=== PATIENT | female | born 1990 | race Native Hawaiian/Other Pacific Islander ===

== ENCOUNTER 2019-01-20 14:01 | Emergency (ER) | payer OTHER ==
[2019-01-20 14:11] VITALS: BP 124/77; PULSE 85; RESP 18; TEMP 98.3; O2SAT 100
[2019-01-20] MEDS ORDERED: Sodium Chloride 0.9% 1,000 ML IV STA (14:34)
[2019-01-20] MEDS ORDERED: Alum-Mag Hydrox-Simethicone Susp (30 mL) PO ONE (14:34)
[2019-01-20] MEDS ORDERED: Alum-Mag Hydrox-Simethicone Susp (30 mL) ONE (14:47)
[2019-01-20 15:04] LABS: BASO # 0.1 K/uL (0.0-0.2); BASO % 0.9 % (0.0-2.0); EOS % 0.3 % (0.0-4.0); HEMOGLOBIN 12.9 g/dL (12.0-16.0); LYMPH # 1.7 K/uL (1.0-4.3); MEAN CELL VOLUME 91.1 fl (81.0-99.0); MEAN CORPUSCULAR HEMOGLOBIN 30.4 pg (27.0-31.0); MEAN CORPUSCULAR HGB CONC 33.3 g/dL (33.0-37.0); MEAN PLATELET VOLUME 10.5 fl (7.2-11.7); MONO # 0.5 K/uL (0.0-0.8); MONO % 7.2 % (0.0-10.0); NEUT # 4.2 K/uL (1.8-7.0); NEUT % 65.6 % (50.0-75.0); NRBC % 0.1 % (0.0-0.0); RBC 4.25 Mil/uL (3.80-5.20); RED CELL DISTRIBUTION WIDTH 13.6 % (11.5-14.5); WHITE BLOOD COUNT 6.4 K/uL (4.8-10.8)
[2019-01-20 15:09] LABS: ALB/GLOB RATIO 1.6 (1.0-2.1); ALBUMIN 4.8 g/dL (3.5-5.0); ALT/SGPT 19 U/L (9-52); AST/SGOT 20 U/L (14-36); BLOOD UREA NITROGEN 10 mg/dl (7-17); CALCIUM 9.9 mg/dL (8.4-10.2); GFR NON-AFRICAN AMERICAN > 60; LIPASE 112 U/L (23-300)
[2019-01-20 15:10] LABS: SQUAMOUS EPITHIAL 1 /hpf (0-5); URINE BACTERIA OCC (<OCC); URINE BILIRUBIN NEGATIVE (NEGATIVE); URINE BLOOD NEGATIVE (NEGATIVE); URINE CLARITY SLIGHTY-CLOUDY (Clear); URINE COLOR YELLOW (YELLOW); URINE GLUCOSE (UA) NEG (NEGATIVE); URINE LEUKOCYTE ESTERASE NEG Leu/uL (Negative); URINE PROTEIN NEGATIVE (NEGATIVE); URINE UROBILINOGEN 0.2-1.0 mg/dL (0.2-1.0)
--- NOTE | 2019-01-20 15:18 | ED PDOC ---
HPI: Abdomen Time Seen by Provider: 01/20/19 14:21 Chief Complaint (Nursing): Abdominal Pain Chief Complaint (Provider): Abdominal Pain History Per: Patient History/Exam Limitations: no limitations Onset/Duration Of Symptoms: Days (x3) Current Symptoms Are (Timing): Still Present Location Of Pain/Discomfort: Epigastric Associated Symptoms: denies: Vomiting, Diarrhea Additional Complaint(s): 28 year old female presents to the ED stating, for the past 3 days, she has had progressively worsening epigastric abdominal pain associated with a bitter taste in her mouth. Patient reports abdominal pain radiates to her back. She further states, she was seen at [facility] yesterday and was given over the counter antacid medication without relief. Patient states she is going to [place] this evening and wants to make sure she is okay before she goes. Last bowel movement was today which was normal. Denies vomiting, diarrhea, previous abdominal surgeries, chest pain, shortness of breath, hematemesis, rectal bleeding, d ysuria, or hematuria. PMD: none provided Past Medical History Reviewed: Historical Data, Nursing Documentation, Vital Signs Vital Signs: Last Vital Signs Temp 98.3 F 01/20/19 14:10 Pulse 85 01/20/19 14:10 Resp 18 01/20/19 14:10 BP 124/77 01/20/19 14:10 Pulse Ox 100 01/20/19 14:10 - Medical History PMH: No Chronic Diseases - Surgical History Surgical History: No Surg Hx - Family History Family History: States: Unknown Family Hx - Home Medications Home Medications: Ambulatory Orders Medication Instructions Recorded Famotidine [Pepcid] 20 mg PO DAILY PRN #10 tab 01/20/19 Ondansetron ODT [Zofran ODT] 4 mg PO TID #10 odt 01/20/19 - Allergies Allergies/Adverse Reactions: Allergies Allergy/AdvReac Type Severity Reaction Status Date / Time No Known Allergies Allergy Verified 01/20/19 14:09 Review of Systems ROS Statement: Except As Marked, All Systems Reviewed And Found Negative ENT: Positive for: Other (Bitter taste in mouth) Cardiovascular: Negative for: Chest Pain Respiratory: Negative for: Shortness of Breath Gastrointestinal: Positive for: Abdominal Pain (epigastric pain radiating to the back). Negative for: Vomiting, Diarrhea, Hematemesis, Other (Rectal bleeding) Genitourinary Female: Negative for: Dysuria, Hematuria Physical Exam - Reviewed Nursing Documentation Reviewed: Yes Vital Signs Reviewed: Yes - Physical Exam Appears: Positive for: No Acute Distress Gastrointestinal/Abdominal: Positive for: Normal Exam, Soft, Other ((-) Villar's Sign). Negative for: Tenderness (to deep palpation) Back: Negative for: L CVA Tenderness, R CVA Tenderness - Laboratory Results Result Diagrams: 01/20/19 14:40 01/20/19 14:40 Lab Results: Total Bilirubin 2.5 mg/dl (0.2-1.3) H 01/20/19 14:40 AST 20 U/L (14-36) 01/20/19 14:40 ALT 19 U/L (9-52) 01/20/19 14:40 Alkaline Phosphatase 43 U/L (38-126) 01/20/19 14:40 Total Protein 7.7 G/DL (6.3-8.2) 01/20/19 14:40 Albumin 4.8 g/dL (3.5-5.0) 01/20/19 14:40 Globulin 3.0 gm/dL (2.2-3.9) 01/20/19 14:40 Albumin/Globulin Ratio 1.6 (1.0-2.1) 01/20/19 14:40 Lipase 112 U/L (23-300) 01/20/19 14:40 Urine Color Yellow (YELLOW) 01/20/19 14:44 Urine Clarity Slighty-cloudy (Clear) 01/20/19 14:44 Urine pH 6.0 (5.0-8.0) 01/20/19 14:44 Ur Specific Ola 1.014 (1.003-1.030) 01/20/19 14:44 Urine Protein Negative mg/dL (NEGATIVE) 01/20/19 14:44 Urine Glucose (UA) Neg mg/dL (NEGATIVE) 01/20/19 14:44 Urine Ketones Negative mg/dL (NEGATIVE) 01/20/19 14:44 Urine Blood Negative (NEGATIVE) 01/20/19 14:44 Urine Nitrate Negative (NEGATIVE) 01/20/19 14:44 Urine Bilirubin Negative (NEGATIVE) 01/20/19 14:44 Urine Urobilinogen 0.2-1.0 mg/dL (0.2-1.0) 01/20/19 14:44 Ur Leukocyte Esterase Neg Josette/uL (Negative) 01/20/19 14:44 Urine RBC (Auto) 3 /hpf (0-3) 01/20/19 14:44 Urine Microscopic WBC 1 /hpf (0-5) 01/20/19 14:44 Ur Squamous Epith Cells 1 /hpf (0-5) 01/20/19 14:44 Urine Bacteria Occ (<OCC) H 01/20/19 14:44 - ECG O2 Sat by Pulse Oximetry: 100 (RA) Pulse Ox Interpretation: Normal Medical Decision Making Medical Decision Making: Initial Impression: Abdominal Pain Initial Plan: --CMP --Lipase stat --ED urine --CBC --Lidocaine 2% 15mL PO --Aluminum hydroxide 30mL PO --Sodium chloride 1000mL IV --Pepcid 20mg IV --Zofran 4mg IV --Urinalysis --Abdomen US 1620 Abd US: negative as per radiology report. Pt. informed of all results. States she was informed in the past about having elevated bilirubin levels. Reports good relief of abdominal pain and nausea. Abd remains soft and non- tender to deep palpation. Advised to f/u with Dr. Perrin for further evaluation but is to return to ED immediately if symptoms worsen. Scribe Attestation: Documented by Arturo Nunez acting as a scribe for Everett WELCH Provider Scribe Attestation: All medical record entries made by the Scribe were at my direction and personally dictated by me. I have reviewed the chart and agree that the record accurately reflects my personal performance of the history, physical exam, medical decision making, and the department course for this patient. I have also personally directed, reviewed, and agree with the discharge instructions and disposition. Disposition - Clinical Impression Clinical Impression: Dyspepsia - Patient ED Disposition Is Patient to be Admitted: No - Disposition Referrals: Miko Kat MD, PhD [Staff Provider] - [facility] [Outside] Disposition: Routine/Home Disposition Time: 16:25 Condition: IMPROVED Additional Instructions: FOLLOW UP WITH DR. KAT FOR FURTHER EVALUATION RETURN TO ED IMMEDIATELY IF SYMPTOMS WORSEN KEANUAMANUEL GERMAIN Alexa DOLL, thank you for letting us take care of you today. Your provider was Rusty Pérez MD and you were treated for ABD PAIN, NAUSEA. The emergency medical care you received today was directed at your acute symptoms. If you were prescribed any medication, please fill it and take as directed. It may take several days for your symptoms to resolve. Return to the Emergency Department if your symptoms worsen, do not improve, or if you have any other problems. Please contact your doctor or call one of the physicians/clinics you have been referred to that are listed on the Patient Visit Information form that is included in your discharge packet. Bring any paperwork you were given at discharge with you along with any medications you are taking to your follow up visit. Our treatment cannot replace ongoing medical care by a primary care provider outside of the emergency department. Thank you for allowing the [facility] team to be part of your care today. If you had an X-Ray or CT scan: A Radiologist will review the ED reading if any change in treatment is needed we will contact you. If you had a blood, urine, or wound culture: It will take several days for the results, if any change in treatment is needed we will contact you. If you had an STI test: It will take 48 hours for the results. Please call after 1 week if you have not heard back. Prescriptions: Famotidine [Pepcid] 20 mg PO DAILY PRN #10 tab PRN Reason: Dyspepsia Ondansetron ODT [Zofran ODT] 4 mg PO TID #10 odt Instructions: Dyspepsia (DC), Stomach Ache and Stomach Upset Forms: [employer] (Yoruba) Print Language: CROATIAN
--- NOTE | 2019-01-20 16:21 | US ---
Date of service: 01/20/2019 HISTORY: Epigastric pain COMPARISON: None. TECHNIQUE: Grayscale imaging was performed. FINDINGS: LIVER: Measures 15.0 cm in length. Normal echogenicity of the liver parenchyma. No mass. No intrahepatic bile duct dilatation. GALLBLADDER: There are no gallstones, wall thickening or pericholecystic fluid. The sonographic Villar's sign is negative. COMMON BILE DUCT: Measures 3.0 mm. No stones. No dilatation. PANCREAS: Unremarkable as visualized. No mass. No ductal dilatation. RIGHT KIDNEY: Measures 11.1 cm in length. Normal echogenicity. No calculus, mass, or hydronephrosis. AORTA: No aneurysmal dilatation. IVC: Unremarkable. OTHER FINDINGS: None . IMPRESSION: No cholelithiasis or biliary dilatation. No significant abnormality.
== END 2019-01-20 16:58 | disposition home or self-care (01) ==
LOC: H.ER 14:01
DX: R10.13 Epigastric pain (principal)
CPT/HCPCS: 76705; 80053; 81003; 81025; 83690; 85025; 96374; 96375; 99284; J2405; J7030

== ENCOUNTER 2019-02-03 13:10 | Emergency (ER) | payer OTHER ==
[2019-02-03 13:40] VITALS: RESP 16; O2SAT 100
[2019-02-03] MEDS ORDERED: Sodium Chloride 0.9% 1,000 ML IV STA (14:24)
--- NOTE | 2019-02-03 14:29 | ED PDOC ---
HPI: Abdomen Time Seen by Provider: 02/03/19 14:03 Chief Complaint (Nursing): Abdominal Pain Chief Complaint (Provider): Abdominal Pain History Per: Patient History/Exam Limitations: no limitations Onset/Duration Of Symptoms: Other (x2 weeks) Current Symptoms Are (Timing): Still Present Location Of Pain/Discomfort: Epigastric Associated Symptoms: Nausea Additional Complaint(s): 28 year old female presents to the ED complaining of epigastric pain. Patient reports she went to the flaring machine operator, Dr. Kat, for epigastric pain and nausea. She states she has been having epigastric pain for the past [address] Kat gave the patient a prescription for Nexium and told her to have blood work drawn. Patient was seen here 2 weeks ago and was given medications for nausea and abdominal pain but she has run out of medications. At that time, she was told her bilirubin was elevated but everything else was normal. She also reports weight loss of 4kg due to nausea. PMD: none provided Past Medical History Reviewed: Historical Data, Nursing Documentation, Vital Signs Vital Signs: Last Vital Signs Temp 97.0 F L 02/03/19 13:36 Pulse 72 02/03/19 13:36 Resp 16 02/03/19 13:36 BP 117/73 02/03/19 13:36 Pulse Ox 100 02/03/19 13:36 - Medical History PMH: No Chronic Diseases - Surgical History Surgical History: No Surg Hx - Family History Family History: States: Unknown Family Hx - Home Medications Home Medications: Ambulatory Orders Medication Instructions Recorded Famotidine [Pepcid] 20 mg PO DAILY PRN #10 tab 01/20/19 Ondansetron ODT [Zofran ODT] 4 mg PO TID #10 odt 01/20/19 - Allergies Allergies/Adverse Reactions: Allergies Allergy/AdvReac Type Severity Reaction Status Date / Time No Known Allergies Allergy Verified 02/03/19 13:36 Review of Systems ROS Statement: Except As Marked, All Systems Reviewed And Found Negative Gastrointestinal: Positive for: Nausea, Abdominal Pain (epigastric) Physical Exam - Reviewed Nursing Documentation Reviewed: Yes Vital Signs Reviewed: Yes - Physical Exam Appears: Positive for: Non-toxic, No Acute Distress Head Exam: Positive for: ATRAUMATIC, NORMOCEPHALIC Skin: Positive for: Normal Color, Warm, Dry Eye Exam: Positive for: Normal appearance Neck: Positive for: Normal, Painless ROM Cardiovascular/Chest: Positive for: Regular Rate, Rhythm Respiratory: Positive for: Normal Breath Sounds. Negative for: Wheezing, Respiratory Distress Gastrointestinal/Abdominal: Positive for: Tenderness (epigastric) Extremity: Positive for: Normal ROM Neurological/Psych: Positive for: Awake, Alert, Normal Tone, Oriented - Laboratory Results Result Diagrams: 02/03/19 14:43 - ECG O2 Sat by Pulse Oximetry: 100 (RA) Pulse Ox Interpretation: Normal Medical Decision Making Medical Decision Making: Initial Impression: Epigastric pain and nausea Initial Plan: --CT abd/pelvis --CMP --Lipase stat --ED urine --ED urine dipstick --CBC --Sodium chloride 1000mL IV --Pepcid 20mg IV --Zofran 4mg IV Dr. Kat recommends endoscopy which patient said she [place] do [place] own country. 15:00 Patient signed out to Dr. Jones. Pending CT and labs. Scribe Attestation: Documented by Arturo Nunez acting as a scribe for Corrie Sanchez MD. Provider Scribe Attestation: All medical record entries made by the Scribe were at my direction and personally dictated by me. I have reviewed the chart and agree that the record accurately reflects my personal performance of the history, physical exam, medical decision making, and the department course for this patient. I have also personally directed, reviewed, and agree with the discharge instructions and disposition. Disposition - Disposition Disposition: Transfer of Care Disposition Time: 15:00 Forms: [employer] (Equatorial Guinean) Patient Signed Over To: Love Jones
[2019-02-03 14:59] LABS: BASO # 0.1 K/uL (0.0-0.2); BASO % 1.4 % (0.0-2.0); EOS # 0.1 K/uL (0.0-0.7); EOS % 1.1 % (0.0-4.0); HEMOGLOBIN 13.3 g/dL (12.0-16.0); LYMPH # 1.3 K/uL (1.0-4.3); LYMPH % 25.5 % (20.0-40.0); MEAN CORPUSCULAR HEMOGLOBIN 29.6 pg (27.0-31.0); MEAN CORPUSCULAR HGB CONC 32.5 g/dL (33.0-37.0); MEAN PLATELET VOLUME 11.3 fl (7.2-11.7); MONO # 0.5 K/uL (0.0-0.8); MONO % 8.8 % (0.0-10.0); NEUT # 3.3 K/uL (1.8-7.0); NEUT % 63.2 % (50.0-75.0); NRBC % 0.1 % (0.0-0.0); RBC 4.5 Mil/uL (3.80-5.20); RED CELL DISTRIBUTION WIDTH 13.8 % (11.5-14.5); WHITE BLOOD COUNT 5.2 K/uL (4.8-10.8)
[2019-02-03 15:13] LABS: ALB/GLOB RATIO 1.6 (1.0-2.1); ALBUMIN 4.6 g/dL (3.5-5.0); ALT/SGPT 25 U/L (9-52); AST/SGOT 17 U/L (14-36); BLOOD UREA NITROGEN 6 mg/dl (7-17); CALCIUM 9.4 mg/dL (8.4-10.2); GFR NON-AFRICAN AMERICAN > 60; LIPASE 123 U/L (23-300)
--- NOTE | 2019-02-03 15:14 | ED PDOC ---
- Laboratory Results Result Diagrams: 02/03/19 14:43 02/03/19 14:43 Urine POC: Negative Urine dip results: Positive for: Blood (small). Negative for: Leukocyte Esterase, Nitrate, Ketones, Glucose, Bilirubin, Protein - ECG O2 Sat by Pulse Oximetry: 100 (RA) Medical Decision Making Medical Decision Makin:00 Patient signed out to this provider from Dr. Sanchez. Pending CT scan and labs. Accession No. : [id number] Patient Name / ID : LAVONROBIN LANG / [id number] Exam Date : 02/03/2019 15:55:38 ( Approved ) Study Comment : Sex / Age : F / 28Y Creator : Polina Tate MD Dictator : Polina Tate MD Cheese Weigher : Aligning Inspector : Polina Tate MD Approver2 : Report Date : 02/03/2019 17:11:32 My Comment : Date of service: 02/03/2019 PROCEDURE: CT Abdomen and Pelvis with contrast HISTORY: Epigastric pain, weight loss, nausea COMPARISON: Limited abdominal ultrasound performed 01/20/19 TECHNIQUE: Contrast dose: 90 mL Omnipaque 300 IV Radiation dose: Total exam DLP = 349.71 mGy-cm. This CT exam was performed using one or more of the following dose reduction techniques: Automated exposure control, adjustment of the mA and/or kV according to patient size, and/or use of iterative reconstruction technique. FINDINGS: LOWER THORAX: No visible consolidation, pleural effusion, or pneumothorax. LIVER: Unremarkable. GALLBLADDER AND BILE DUCTS: Unremarkable. PANCREAS: Unremarkable. SPLEEN: Unremarkable. ADRENALS: Unremarkable. KIDNEYS AND URETERS: The kidneys enhance symmetrically. No hydronephrosis or obstructing calculus identified. VASCULATURE: No aortic aneurysm. No atherosclerotic calcification or mural plaque present. BOWEL: Stomach is nondistended. Lack of oral contrast limits evaluation for bowel pathology. Bowel loops appear within normal limits of caliber without evidence of obstruction. APPENDIX: The presumed appendix appears within normal limits of caliber. No secondary signs of acute appendicitis. PERITONEUM: No significant free fluid. No definite free air. LYMPH NODES: No bulky adenopathy identified. BLADDER: Unremarkable. REPRODUCTIVE: Uterus is present. Question prominence of the right ovary. BONES: No acute osseous abnormality is detected. OTHER FINDINGS: None. IMPRESSION: Question prominence of the right ovary; recommend further evaluation with pelvic ultrasound. DW pt lab findings and CT findings. Had already been seen by GI who rx'd Nexium and recommended endoscopy. She has many concerns about being referred for endosc opy by her rouge sifter and these were addressed and options to wait for trial of medications or further testing with H Pylori with GI or PMD. Scribe Attestation: Documented by Arturo Nunez acting as a scribe for Love Jones MD. Provider Scribe Attestation: All medical record entries made by the Scribe were at my direction and personally dictated by me. I have reviewed the chart and agree that the record accurately reflects my personal performance of the history, physical exam, medi negrita decision making, and the department course for this patient. I have also personally directed, reviewed, and agree with the discharge instructions and disposition. Disposition - Clinical Impression Clinical Impression: Dyspepsia - POA Present On Arrival: None - Disposition Referrals: [facility] [Outside] (YOU CAN FOLLOWUP WITH [email or web address] FOR ASSISTANCE WITH PRIMARY CARE APPOINTMENTS AND FOR FURTHER EVALUATION) Disposition: Routine/Home Disposition Time: 18:00 Condition: STABLE Additional Instructions: FOLLOWUP WITH GASTROENTEROLOGY OR YOUR PMD IN A WEEK TO SEE HOW YOU ARE DOING WITH THE MEDICATIONS DR CUNHA PROVIDED AND TO POSSIBLY SCHEDULE FURTHER TESTING. Instructions: Dyspepsia (DC) Forms: [employer] [facility] (Austrian), [facility] ED School/Work Excuse
[2019-02-03] MEDS ORDERED: Sodium Chloride 0.9% 50 ML IV ONE (15:47)
[2019-02-03] MEDS ORDERED: Iohexol 300 100 ML IJ ONE (15:47)
--- NOTE | 2019-02-03 17:15 | CT ---
Date of service: 02/03/2019 PROCEDURE: CT Abdomen and Pelvis with contrast HISTORY: Epigastric pain, weight loss, nausea COMPARISON: Limited abdominal ultrasound performed 01/20/19 TECHNIQUE: Contrast dose: 90 mL Omnipaque 300 IV Radiation dose: Total exam DLP = 349.71 mGy-cm. This CT exam was performed using one or more of the following dose reduction techniques: Automated exposure control, adjustment of the mA and/or kV according to patient size, and/or use of iterative reconstruction technique. FINDINGS: LOWER THORAX: No visible consolidation, pleural effusion, or pneumothorax. LIVER: Unremarkable. GALLBLADDER AND BILE DUCTS: Unremarkable. PANCREAS: Unremarkable. SPLEEN: Unremarkable. ADRENALS: Unremarkable. KIDNEYS AND URETERS: The kidneys enhance symmetrically. No hydronephrosis or obstructing calculus identified. VASCULATURE: No aortic aneurysm. No atherosclerotic calcification or mural plaque present. BOWEL: Stomach is nondistended. Lack of oral contrast limits evaluation for bowel pathology. Bowel loops appear within normal limits of caliber without evidence of obstruction. APPENDIX: The presumed appendix appears within normal limits of caliber. No secondary signs of acute appendicitis. PERITONEUM: No significant free fluid. No definite free air. LYMPH NODES: No bulky adenopathy identified. BLADDER: Unremarkable. REPRODUCTIVE: Uterus is present. Question prominence of the right ovary. BONES: No acute osseous abnormality is detected. OTHER FINDINGS: None. IMPRESSION: Question prominence of the right ovary; recommend further evaluation with pelvic ultrasound.
[2019-02-03 18:04] VITALS: BP 132/66; PULSE 78; TEMP 97.7
== END 2019-02-03 18:00 | disposition short-term general hospital (02) ==
LOC: H.ER 13:10
DX: K30 Functional dyspepsia (principal)
CPT/HCPCS: 74177; 80053; 81025; 83690; 85025; 96374; 99284; J2405; J7030; Q9967

== ENCOUNTER 2019-02-09 17:41 | Emergency (ER) | payer OTHER ==
[2019-02-09 17:53] VITALS: BP 115/64; PULSE 70; RESP 16; TEMP 98.8; O2SAT 100
--- NOTE | 2019-02-09 19:06 | ED PDOC ---
HPI: Abdomen Time Seen by Provider: 02/09/19 19:15 Chief Complaint (Nursing): Abdominal Pain Chief Complaint (Provider): Epigastric Pain History Per: Patient History/Exam Limitations: no limitations Onset/Duration Of Symptoms: Days (x1 month) Current Symptoms Are (Timing): Still Present Location Of Pain/Discomfort: Epigastric Quality Of Discomfort: Burning Associated Symptoms: Nausea, Loss Of Appetite. denies: Fever, Chills, Urinary Symptoms Exacerbating Factors: Supine, Food Alleviating Factors: None Additional Complaint(s): 28 year old female presents to the ED for evaluation of epigastric pain and burning sensation for the past month, worse after eating. Patient was seen here 10 days ago with same symptoms and diagnosed with GERD, discharged with Zofran for nausea. Patient notes she takes the Zofran 1-2 times per day with minimal relief. She was also seen by Dr. Kat (GI) five days ago who recommended endoscopy, but she refused because of the expense, pt reports [place],and instead left with script for Dexilant, which she has since stopped taking secondary to no relief. She reports that now sometimes when she lays down, she feels epigastric pain and mid sternal burning. Of note, patient says she is under increased stressed lately in light of her father recently being diagnosed with colon cancer, and while back home she felt as if the nausea and pain was worse. pt denies taking medications for discomfort today. PMD: none provided Abnormal Vaginal Bleeding: No Past Medical History Reviewed: Historical Data, Nursing Documentation, Vital Signs Vital Signs: Last Vital Signs Temp 98.8 F 02/09/19 17:52 Pulse 70 02/09/19 17:52 Resp 16 02/09/19 17:52 BP 115/64 02/09/19 17:52 Pulse Ox 100 02/09/19 17:52 - Medical History PMH: GERD - Surgical History Surgical History: No Surg Hx - Family History Family History: States: Unknown Family Hx - Living Arrangements Living Arrangements: [place] - Home Medications Home Medications: Ambulatory Orders Medication Instructions Recorded Famotidine [Pepcid] 20 mg PO DAILY PRN #10 tab 01/20/19 Ondansetron ODT [Zofran ODT] 4 mg PO TID #10 odt 01/20/19 - Allergies Allergies/Adverse Reactions: Allergies Allergy/AdvReac Type Severity Reaction Status Date / Time No Known Allergies Allergy Verified 02/03/19 13:36 Review of Systems ROS Statement: Except As Marked, All Systems Reviewed And Found Negative Constitutional: Negative for: Fever, Weakness, Malaise Eyes: Negative for: Pain, Vision Change, Eyelid Inflammation, Redness ENT: Negative for: Ear Pain, Ear Discharge, Nose Congestion, Mouth Pain, Mouth Swelling Cardiovascular: Negative for: Chest Pain, Palpitations, Orthopnea, Edema Respiratory: Negative for: Cough, Shortness of Breath, SOB with Exertion, Pleuritic Pain, Wheezing Gastrointestinal: Positive for: Nausea, Abdominal Pain (epigastric pain). Negative for: Vomiting, Diarrhea, Constipation Genitourinary Female: Negative for: Dysuria Skin: Negative for: Rash Psych: Positive for: Other (feeling stressed) Physical Exam - Reviewed Nursing Documentation Reviewed: Yes Vital Signs Reviewed: Yes - Physical Exam Appears: Positive for: No Acute Distress Head Exam: Positive for: ATRAUMATIC, NORMOCEPHALIC Skin: Positive for: Normal Color, Warm, Dry. Negative for: Rash Eye Exam: Positive for: Normal appearance ENT: Positive for: Normal ENT Inspection Neck: Positive for: Normal, Painless ROM, Supple Cardiovascular/Chest: Positive for: Regular Rate, Rhythm Respiratory: Positive for: Normal Breath Sounds. Negative for: Respiratory Distress Gastrointestinal/Abdominal: Positive for: Soft, Tenderness (epigastric and RUQ tenderness). Negative for: Mass, Distended, Guarding, Rebound, Other (rashes) Back: Positive for: Normal Inspection Extremity: Positive for: Normal ROM (all extremities) Neurological/Psych: Positive for: Awake, Alert, Symmetric/Intact Strength (5/5 x4 extremities), Oriented (x3). Negative for: Motor/Sensory Deficits - Laboratory Results Result Diagrams: 02/09/19 19:40 02/09/19 19:40 Urine POC: Negative - ECG O2 Sat by Pulse Oximetry: 100 (RA) Pulse Ox Interpretation: Normal Medical Decision Making Medical Decision Making: Time: 1899 Initial Impression: epigastric pain in setting of recent GERD diagnosis Initial Plan: --Patient is requesting urine and blood tests at this time. Will review her previous charts before deciding on a plan. previous charts reviewed, pt has CT abd/pelvis and US both negative. 1999: Pt pending blood work results. Pt handed-off to Betty Howe PA-C. Scribe Attestation: Documented by Lyndsey Mehta, acting as a scribe for Matilde Quach NP. Provider Scribe Attestation: All medical record entries made by the Scribe were at my direction and personally dictated by me. I have reviewed the chart and agree that the record accurately reflects my personal performance of the history, physical exam, medical decision making, and the department course for this patient. I have also personally directed, reviewed, and agree with the discharge instructions and disposition. Disposition - Clinical Impression Clinical Impression: GERD (gastroesophageal reflux disease), Dyspepsia - Patient ED Disposition Is Patient to be Admitted: Transfer of Care Counseled Patient/Family Regarding: Diagnosis - Disposition Disposition: Transfer of Care Disposition Time: 20:00 Condition: STABLE Forms: [employer] (Slovak) Patient Signed Over To: Betty South Handoff Comments: Blood work results, re-eval after meds - POA Present On Arrival: None
[2019-02-09 19:48] LABS: BASO # 0.1 K/uL (0.0-0.2); BASO % 1.3 % (0.0-2.0); EOS % 0.8 % (0.0-4.0); HEMOGLOBIN 12.8 g/dL (12.0-16.0); LYMPH # 1.9 K/uL (1.0-4.3); LYMPH % 31.9 % (20.0-40.0); MEAN CELL VOLUME 91.1 fl (81.0-99.0); MEAN CORPUSCULAR HEMOGLOBIN 30.1 pg (27.0-31.0); MEAN CORPUSCULAR HGB CONC 33.1 g/dL (33.0-37.0); MEAN PLATELET VOLUME 11.2 fl (7.2-11.7); MONO # 0.5 K/uL (0.0-0.8); MONO % 8.7 % (0.0-10.0); NEUT # 3.3 K/uL (1.8-7.0); NEUT % 57.3 % (50.0-75.0); RBC 4.26 Mil/uL (3.80-5.20); RED CELL DISTRIBUTION WIDTH 13.9 % (11.5-14.5); WHITE BLOOD COUNT 5.8 K/uL (4.8-10.8)
[2019-02-09 20:03] LABS: SQUAMOUS EPITHIAL < 1 /hpf (0-5); URINE BACTERIA FEW (<OCC); URINE BILIRUBIN NEGATIVE (NEGATIVE); URINE BLOOD NEGATIVE (NEGATIVE); URINE CLARITY CLEAR (Clear); URINE COLOR STRAW (YELLOW); URINE GLUCOSE (UA) NEG (NEGATIVE); URINE LEUKOCYTE ESTERASE NEG Leu/uL (Negative); URINE PROTEIN NEGATIVE (NEGATIVE); URINE UROBILINOGEN 0.2-1.0 mg/dL (0.2-1.0)
[2019-02-09] MEDS: Sodium Chloride 0.9% 1,000 ML IV STA (20:22)
[2019-02-09 20:27] LABS: ALB/GLOB RATIO 1.7 (1.0-2.1); ALBUMIN 4.6 g/dL (3.5-5.0); ALT/SGPT 20 U/L (9-52); AST/SGOT 19 U/L (14-36); BLOOD UREA NITROGEN 6 mg/dl (7-17); CALCIUM 9.7 mg/dL (8.4-10.2); GFR NON-AFRICAN AMERICAN > 60; LIPASE 128 U/L (23-300)
[2019-02-09] MEDS ORDERED: Potassium Chloride 20 mEq ER Tab PO ONE (21:10)
[2019-02-09] MEDS: Potassium Chloride 20 mEq ER Tab PO ONE (21:12)
--- NOTE | 2019-02-09 21:24 | ED PDOC ---
- Laboratory Results Result Diagrams: 02/09/19 19:40 02/09/19 19:40 Lab Results: Total Bilirubin 1.4 mg/dl (0.2-1.3) H 02/09/19 19:40 AST 19 U/L (14-36) 02/09/19 19:40 ALT 20 U/L (9-52) 02/09/19 19:40 Alkaline Phosphatase 39 U/L (38-126) 02/09/19 19:40 Total Protein 7.2 G/DL (6.3-8.2) 02/09/19 19:40 Albumin 4.6 g/dL (3.5-5.0) 02/09/19 19:40 Globulin 2.6 gm/dL (2.2-3.9) 02/09/19 19:40 Albumin/Globulin Ratio 1.7 (1.0-2.1) 02/09/19 19:40 Lipase 128 U/L (23-300) 02/09/19 19:40 Urine Color Straw (YELLOW) 02/09/19 19:38 Urine Clarity Clear (Clear) 02/09/19 19:38 Urine pH 6.0 (5.0-8.0) 02/09/19 19:38 Ur Specific Rogers < 1.005 (1.003-1.030) 02/09/19 19:38 Urine Protein Negative mg/dL (NEGATIVE) 02/09/19 19:38 Urine Glucose (UA) Neg mg/dL (NEGATIVE) 02/09/19 19:38 Urine Ketones Negative mg/dL (NEGATIVE) 02/09/19 19:38 Urine Blood Negative (NEGATIVE) 02/09/19 19:38 Urine Nitrate Negative (NEGATIVE) 02/09/19 19:38 Urine Bilirubin Negative (NEGATIVE) 02/09/19 19:38 Urine Urobilinogen 0.2-1.0 mg/dL (0.2-1.0) 02/09/19 19:38 Ur Leukocyte Esterase Neg Josette/uL (Negative) 02/09/19 19:38 Urine RBC (Auto) 1 /hpf (0-3) 02/09/19 19:38 Urine Microscopic WBC < 1 /hpf (0-5) 02/09/19 19:38 Ur Squamous Epith Cells < 1 /hpf (0-5) 02/09/19 19:38 Urine Bacteria Few (<OCC) H 02/09/19 19:38 Urine POC: Negative - ECG O2 Sat by Pulse Oximetry: 100 (RA) - Progress ED Course And Treament: Case endorsed to health underwriter from [facility] pending labs, re-eval 21:20 Patient states she is feeling better. Patient educated on findings, discharged with rx Zofran Patient states she leaves in 2 days to return home to have her endoscopy; advised to continue current medications Rx zofran provided Diet modification Return precautions given Disposition - Clinical Impression Clinical Impression: Dyspepsia - POA Present On Arrival: None - Disposition Disposition: Routine/Home Disposition Time: 21:23 Condition: IMPROVED Prescriptions: Ondansetron ODT [Zofran ODT] 4 mg PO Q8 PRN #10 odt PRN Reason: Nausea/Vomiting Instructions: Dyspepsia
== END 2019-02-09 21:31 | disposition home or self-care (01) ==
LOC: H.ER 17:41
DX: R10.13 Epigastric pain (principal); K30 Functional dyspepsia; K21.9 Gastro-esophageal reflux disease without esophagitis
CPT/HCPCS: 80053; 81003; 81025; 83690; 85025; 96374; 96375; 99284; J2405; J7030